=== PATIENT | male | born 1955 | race Caucasian/White ===

== ENCOUNTER → 2021-03-07 | Day surgery (SDC) | payer MEDICARE ==
[~2021-03-07] VITALS: Ht 175.3 cm; Wt 86.6 kg
== END | disposition home or self-care (01) ==
LOC: OR 06:45
DX: S83.241A Other tear of medial meniscus, current injury, right knee, initial encounter (principal); M94.261 Chondromalacia, right knee; I25.2 Old myocardial infarction; Z87.891 Personal history of nicotine dependence; Z20.822 Contact with and (suspected) exposure to COVID-19; X50.1XXA Overexertion from prolonged static or awkward postures, initial encounter
CPT/HCPCS: 93005; J0171; J0690; J2001; J2250; J2704; J3010; J7120